=== PATIENT | male | born 1965 | race Caucasian/White ===

== ENCOUNTER 2018-11-15 07:51 | Inpatient (IN) | payer OTHER ==
[~2018-11-15] VITALS: Ht 182.9 cm; Wt 93.4 kg
[~2018-11-15 07:51] MED LIST: AMLO-150 PO; ASPI325T17 PO; CARV-39 PO; CEFD300C37 PO; DOXY50SY PO; ENAL10TA PO; FURO20TA3 PO; POTA20TA14 PO; SPIR25TA PO
[2018-11-15] MEDS ORDERED: ONDANSETRON 2MG/ML, 2ML ONE (08:20)
[2018-11-15] MEDS ORDERED: MORPHINE SULFATE 4 MG/ML, 1ML ONE (08:21)
[2018-11-15] MEDS: MORPHINE SULFATE 4 MG/ML, 1ML IVPush PRN ×2 (08:25→12:31)
[2018-11-15] MEDS ORDERED: SODIUM CHLORIDE 0.9% 1,000ML IVBOLUS ONE ×2 (08:30→11:30)
[2018-11-15] MEDS ORDERED: ONDANSETRON 2MG/ML, 2ML IVPush ONE (08:30)
[2018-11-15] MEDS ORDERED: SODIUM CHLORIDE FLUSH 10ML SYR IVF ONE (08:30)
--- NOTE | 2018-11-15 08:31 | NUR ---
PT STATED THAT HE HAS EPIGASTRIC PAIN THAT GETS WORSE AFTER EATING. PT IS ALERT, ORIENTED, WITH NAD. PT IS CONNECTED TO THE MONITOR. CALL LIGHT WITHIN REACH.
--- NOTE | 2018-11-15 08:43 | NUR ---
US AT BEDSIDE.
[2018-11-15 08:48] LABS: BASOPHILS # (AUTO) 0.04 x10^3/uL (0-0.1); BASOPHILS % (AUTO) 0 % (0-1); EOSINOPHILS # (AUTO) 0.04 x10^3/uL (0-0.4); EOSINOPHILS % (AUTO) 0 % (1-7); LYMPHOCYTES # (AUTO) 0.85 x10^3/uL (1-3.4); LYMPHOCYTES % (AUTO) 8 % (22-44); MD NO; MEAN CORPUSCULAR HEMOGLOBIN 27.9 pg (27.5-34.5); MEAN CORPUSCULAR HGB CONC 33.4 g/dL (33.2-36.2); MEAN CORPUSCULAR VOLUME 83.5 fL (81-97); MEAN PLATELET VOLUME 8.8 fL (7.4-10.4); MONOCYTES # (AUTO) 0.47 x10^3/uL (0.2-0.8); MONOCYTES % (AUTO) 5 % (2-9); NEUTROPHILS % (AUTO) 87 % (42-75); PLATELET COUNT 290 x10^3/uL (130-400); RED BLOOD COUNT 5.96 x10^6/uL (4.38-5.82)
[2018-11-15 09:00] LABS: ALANINE AMINOTRANSFERASE 23 U/L (12-78); ALBUMIN 3.7 g/dL (3.4-5.0); ANION GAP 12 mmol/L (5-15); CALCIUM 9.6 mg/dL (8.5-10.1); CHLORIDE 92 mmol/L (98-107); CREATININE 1.68 mg/dL (0.7-1.3)
[2018-11-15 09:02] LABS: ALKALINE PHOSPHATASE 148 U/L (45-117); BILIRUBIN,TOTAL 0.6 mg/dL (0.2-1.0); TOTAL PROTEIN 8.4 g/dL (6.4-8.2)
--- NOTE | 2018-11-15 09:17 | NUR ---
PT AMBULATED TO THE BATHROOM WITH STEADY GAIT.
--- NOTE | 2018-11-15 09:26 | NUR ---
pt medicated per order. Pt is resting in bed, respirations equal and non labored. NAD. Pt is connected to the monitor. Call light within reach. Sister at bedside.
[2018-11-15 09:52] LABS: FIO2 RA %; PH, VENOUS 7.393 pH (7.320-7.420)
[2018-11-15] MEDS ORDERED: INSULIN REGULAR 100 UNITS/ML, 3ML VIAL ONE (10:16)
[2018-11-15] MEDS ORDERED: CEFOTETAN PMX 1GM/50ML 50 ML ONE (10:16)
[2018-11-15] MEDS ORDERED: hydrALAzine 20 MG/ML, 1ML ONE (10:29)
[2018-11-15] MEDS ORDERED: CEFOTETAN PMX 1GM/50ML 50 ML IV ONE (10:30)
[2018-11-15] MEDS ORDERED: INSULIN REGULAR 100 UNITS/ML, 3ML VIAL IVPush ONE (10:30)
[2018-11-15] MEDS ORDERED: hydrALAzine 20 MG/ML, 1ML IV ONE (10:30)
[2018-11-15 10:37] LABS: ACETONE, SERUM Moderate(40mg/dL) mg/dL (Negative)
--- NOTE | 2018-11-15 10:38 | NUR ---
pt medicated per order.
--- NOTE | 2018-11-15 10:53 | NUR ---
X RAY AT BEDSIDE.
--- NOTE | 2018-11-15 11:04 | NUR ---
HOSPITALIST AT BEDSIDE.
--- NOTE | 2018-11-15 11:14 | NUR ---
REPORT GIVEN TO JOANA LOZADA.
[2018-11-15] MEDS ORDERED: GLUCAGON 1 MG IM PRN (11:30)
[2018-11-15] MEDS ORDERED: INSULIN GLARGINE 100 UNITS/ML, PEN SQ-INSULIN SCH ×2 (11:30→14:00)
[2018-11-15] MEDS ORDERED: DEXTROSE 4 GM TAB.CHEW PO PRN (11:30)
[2018-11-15] MEDS: SODIUM CHLORIDE FLUSH 10ML SYR IVF SCH ×2 (11:30→20:40)
[2018-11-15] MEDS ORDERED: DEXTROSE 50%, 50ML SYRINGE IVPush PRN (11:30)
[2018-11-15 12:20] LABS: HEMOGLOBIN A1C 13.3 % (4.2-6.3)
[2018-11-15 12:25] LABS: TROPONIN I < 0.015 ng/mL (0.000-0.045)
[2018-11-15] MEDS ORDERED: INSULIN LISPRO 100 UNITS/ML, PEN SQ-INSULIN ONE (12:30)
[2018-11-15] MEDS: SODIUM CHLORIDE 0.9% 1,000 ML IV SCH ×2 (12:31→22:35)
[2018-11-15] MEDS: AMLODIPINE 5 MG TABLET PO SCH (12:31)
[2018-11-15] MEDS: METRONIDAZOLE PMX 500MG/100ML 100 ML IV SCH ×2 (13:42→20:40)
[2018-11-15] MEDS: INSULIN GLARGINE 100 UNITS/ML, PEN SQ-INSULIN SCH (13:44)
[2018-11-15 14:00] VITALS: BP 171/109
[2018-11-15 14:30] LABS: TROPONIN I 0.033 ng/mL (0.000-0.045)
[2018-11-15] MEDS: morphine SULFATE 10 MG/ML, 1ML IVPush PRN ×2 (16:02→20:55)
[2018-11-15] MEDS: INSULIN LISPRO 100 UNITS/ML, PEN SQ-INSULIN SCH ×2 (17:45→21:02)
[2018-11-15 17:57] VITALS: BP 180/123
[2018-11-15] MEDS: CEFTRIAXONE PMX 1GM/50ML 50 ML IV SCH (18:23)
[2018-11-15] MEDS: OXYcodone IR 5MG TABLET PO PRN (18:35)
[2018-11-15] MEDS: hydrALAzine 20 MG/ML, 1ML IVPush PRN ×2 (18:41→23:30)
[2018-11-15 19:27] VITALS: BP 164/99
[2018-11-15 20:28] LABS: TROPONIN I 0.022 ng/mL (0.000-0.045)
[2018-11-15 20:47] VITALS: BP 194/115
[2018-11-15 22:33] VITALS: BP 189/123
[2018-11-15] MEDS: LABETALOL 5MG/ML, 20ML IVPush PRN (22:35)
[2018-11-15 23:22] VITALS: BP 187/111
[2018-11-16] VITALS (8 sets, daily range): BP systolic 158–197; BP diastolic 69–116
[2018-11-16] MEDS ORDERED: METOPROLOL TARTRATE 25 MG TABLET ONE (00:58)
[2018-11-16] MEDS: ONDANSETRON 2MG/ML, 2ML IVPush PRN (01:24)
[2018-11-16] MEDS: LABETALOL 5MG/ML, 20ML IVPush PRN (01:34)
[2018-11-16] MEDS: METOPROLOL TARTRATE 25 MG TABLET PO SCH ×3 (01:36→06:32)
[2018-11-16] MEDS: METRONIDAZOLE PMX 500MG/100ML 100 ML IV SCH ×3 (01:42→22:50)
[2018-11-16] MEDS: morphine SULFATE 10 MG/ML, 1ML IVPush PRN ×3 (01:42→17:00)
[2018-11-16] MEDS: hydrALAzine 20 MG/ML, 1ML IVPush PRN ×2 (03:39→18:15)
[2018-11-16 05:42] LABS: CHLORIDE 102 mmol/L (98-107)
[2018-11-16 05:53] LABS: MEAN CORPUSCULAR HEMOGLOBIN 28.3 pg (27.5-34.5); MEAN CORPUSCULAR HGB CONC 33.5 g/dL (33.2-36.2); MEAN CORPUSCULAR VOLUME 84.5 fL (81-97); MEAN PLATELET VOLUME 8.6 fL (7.4-10.4); PLATELET COUNT 356 x10^3/uL (130-400); RED BLOOD COUNT 5.47 x10^6/uL (4.38-5.82); RED CELL DISTRIBUTION WIDTH 14.4 % (9.4-14.8)
[2018-11-16 05:56] LABS: ALANINE AMINOTRANSFERASE 26 U/L (12-78); ALBUMIN 3.2 g/dL (3.4-5.0); ALKALINE PHOSPHATASE 123 U/L (45-117); ANION GAP 13 mmol/L (5-15); BILIRUBIN,TOTAL 0.5 mg/dL (0.2-1.0); CALCIUM 9.4 mg/dL (8.5-10.1); CREATININE 1.38 mg/dL (0.7-1.3); TOTAL PROTEIN 7.4 g/dL (6.4-8.2)
[2018-11-16 06:13] LABS: BASOPHILS # (AUTO) 0.01 x10^3/uL (0-0.1); BASOPHILS % (AUTO) 0 % (0-1); EOSINOPHILS % (AUTO) 0 % (1-7); LYMPHOCYTES % (AUTO) 4 % (22-44); MD SCAN; MONOCYTES # (AUTO) 1.04 x10^3/uL (0.2-0.8); MONOCYTES % (AUTO) 6 % (2-9); NEUTROPHILS % (AUTO) 90 % (42-75)
[2018-11-16] MEDS: INSULIN LISPRO 100 UNITS/ML, PEN SQ-INSULIN SCH ×4 (06:38→20:34)
[2018-11-16] MEDS ORDERED: BUPIVACAINE/PF-EPI 0.5% 1:200K ONE (06:47)
[2018-11-16] MEDS ORDERED: MIDAZOLAM 1 MG/ML, 2ML ONE (07:15)
[2018-11-16] MEDS ORDERED: SCOPOLAMINE PATCH, 1.5MG PATCH.TD72 TD ONE (07:15)
[2018-11-16] MEDS ORDERED: FENTANYL PF 250 MCG/5ML ONE (07:16)
[2018-11-16] MEDS ORDERED: PHENYLEPHRINE 10 MG/ML ONE (07:17)
[2018-11-16] MEDS ORDERED: LABETALOL 20 MG/4 ML ONE (07:17)
[2018-11-16] MEDS ORDERED: METOCLOPRAMIDE 5 MG/ML, 2ML ONE (07:17)
[2018-11-16] MEDS ORDERED: ALBUTEROL/IPRATROPIUM 2.5MG/0.5MG, 3 ML NPPB PRN (07:30)
[2018-11-16] MEDS ORDERED: OXYcodone 5 MG/5 ML ORAL.SOL UDC PO PRN (07:30)
[2018-11-16] MEDS ORDERED: ONDANSETRON 2MG/ML, 2ML IV PRN (07:30)
[2018-11-16] MEDS ORDERED: HYDROmorphone 2 MG/ML, 1ML IVPush PRN (07:30)
[2018-11-16] MEDS ORDERED: PROMETHAZINE 25 MG/ML, 1ML IV PRN (07:30)
[2018-11-16] MEDS ORDERED: METOPROLOL 1 MG/ML, 5ML IV PRN (07:30)
[2018-11-16] MEDS ORDERED: MIDAZOLAM 1 MG/ML, 2ML IV PRN (07:30)
[2018-11-16] MEDS ORDERED: hydrALAzine 20 MG/ML, 1ML IV PRN (07:30)
[2018-11-16] MEDS ORDERED: BUPIVACAINE/PF-EPI 0.5% 1:200K INFIL ONE (07:38)
[2018-11-16] MEDS ORDERED: SUGAMMADEX 200 MG/2 ML IVPush ONE (07:50)
[2018-11-16] MEDS ORDERED: ROCURONIUM 10MG/ML,5ML ONE (08:06)
[2018-11-16] MEDS ORDERED: ONDANSETRON 2MG/ML, 2ML ONE (08:06)
[2018-11-16] MEDS ORDERED: PROPOFOL 10 MG/ML, 20ML ONE (08:06)
[2018-11-16] MEDS ORDERED: DEXAMETHASONE 4 MG/ML, 1ML ONE (08:06)
[2018-11-16] MEDS ORDERED: SUCCINYLCHOLINE 20 MG/ML, 10ML ONE (08:06)
[2018-11-16] MEDS ORDERED: INSULIN SINGLE DOSE, ER SQ-INSULIN ONE (08:27)
[2018-11-16] MEDS ORDERED: INSULIN REGULAR 100 UNITS/ML, 3ML VIAL SQ-INSULIN ONE (08:30)
[2018-11-16] MEDS ORDERED: OXYcodone 5 MG/5 ML ORAL.SOL UDC ONE (08:37)
[2018-11-16] MEDS ORDERED: FENTANYL PF 100 MCG/2ML ONE (08:37)
[2018-11-16] MEDS: FENTANYL PF 100 MCG/2ML IV PRN ×2 (08:39→09:15)
[2018-11-16] MEDS: SODIUM CHLORIDE FLUSH 10ML SYR IVF SCH ×2 (09:00→20:35)
[2018-11-16] MEDS ORDERED: hydrALAzine 20 MG/ML, 1ML ONE (09:20)
[2018-11-16] MEDS: AMLODIPINE 5 MG TABLET PO SCH (10:14)
[2018-11-16] MEDS: SODIUM CHLORIDE 0.9% 1,000 ML IV SCH ×2 (10:14→20:35)
[2018-11-16] MEDS: OXYcodone IR 5MG TABLET PO PRN ×2 (14:45→20:46)
[2018-11-16] MEDS: ACETAMINOPHEN 325 MG TABLET PO PRN (16:49)
[2018-11-16] MEDS ORDERED: KETOROLAC 30 MG/1 ML ONE (17:52)
[2018-11-16] MEDS ORDERED: KETOROLAC 30 MG/1 ML IVPush ONE (18:00)
[2018-11-16] MEDS: CEFTRIAXONE PMX 1GM/50ML 50 ML IV SCH (18:03)
[2018-11-16] MEDS: SIMETHICONE 125 MG CHEW TAB PO SCH (20:34)
[2018-11-17 01:33] VITALS: BP 151/89
[2018-11-17] MEDS: OXYcodone IR 5MG TABLET PO PRN ×3 (02:01→21:30)
[2018-11-17] MEDS: METRONIDAZOLE PMX 500MG/100ML 100 ML IV SCH (04:41)
[2018-11-17] MEDS: SODIUM CHLORIDE 0.9% 1,000 ML IV SCH (04:41)
[2018-11-17] MEDS: METOPROLOL TARTRATE 25 MG TABLET PO SCH (05:17)
[2018-11-17 06:09] LABS: BASOPHILS # (AUTO) 0.03 x10^3/uL (0-0.1); BASOPHILS % (AUTO) 0 % (0-1); EOSINOPHILS # (AUTO) 0.01 x10^3/uL (0-0.4); EOSINOPHILS % (AUTO) 0 % (1-7); LYMPHOCYTES # (AUTO) 1.27 x10^3/uL (1-3.4); LYMPHOCYTES % (AUTO) 11 % (22-44); MD NO; MEAN CORPUSCULAR HEMOGLOBIN 27.7 pg (27.5-34.5); MEAN CORPUSCULAR HGB CONC 32.4 g/dL (33.2-36.2); MEAN CORPUSCULAR VOLUME 85.7 fL (81-97); MEAN PLATELET VOLUME 8.4 fL (7.4-10.4); MONOCYTES # (AUTO) 1.06 x10^3/uL (0.2-0.8); MONOCYTES % (AUTO) 9 % (2-9); NEUTROPHILS # (AUTO) 9.44 x10^3/uL (1.8-6.8); NEUTROPHILS % (AUTO) 80 % (42-75); PLATELET COUNT 252 x10^3/uL (130-400); RED BLOOD COUNT 4.82 x10^6/uL (4.38-5.82); RED CELL DISTRIBUTION WIDTH 14.8 % (9.4-14.8)
[2018-11-17 06:17] LABS: ANION GAP 10 mmol/L (5-15); CALCIUM 8.7 mg/dL (8.5-10.1); CHLORIDE 106 mmol/L (98-107)
[2018-11-17 06:19] LABS: CREATININE 1.39 mg/dL (0.7-1.3)
[2018-11-17 07:16] VITALS: BP 164/86
[2018-11-17] MEDS: SODIUM CHLORIDE FLUSH 10ML SYR IVF SCH ×2 (07:48→21:13)
[2018-11-17] MEDS: AMLODIPINE 5 MG TABLET PO SCH (07:48)
[2018-11-17] MEDS: SIMETHICONE 125 MG CHEW TAB PO SCH ×4 (07:48→21:13)
[2018-11-17] MEDS: metroNIDAZOLE 500 MG TABLET PO SCH ×2 (08:16→16:44)
[2018-11-17] MEDS: POTASSIUM CHLORIDE 20 MEQ TAB.ER.PRT PO SCH ×2 (08:16→16:44)
[2018-11-17] MEDS: INSULIN GLARGINE 100 UNITS/ML, PEN SQ-INSULIN SCH (08:17)
[2018-11-17] MEDS: INSULIN LISPRO 100 UNITS/ML, PEN SQ-INSULIN SCH ×4 (08:17→21:21)
[2018-11-17] MEDS: ACETAMINOPHEN 325 MG TABLET PO PRN (11:19)
[2018-11-17 13:00] VITALS: BP 152/86
[2018-11-17 17:46] VITALS: BP 184/101
[2018-11-17] MEDS: METOPROLOL TARTRATE 50 MG TABLET PO SCH (17:47)
[2018-11-17] MEDS: hydrALAzine 20 MG/ML, 1ML IVPush PRN (17:51)
[2018-11-17 18:44] VITALS: BP 156/90
[2018-11-17] MEDS: CEFDINIR 300 MG CAPSULE PO SCH (21:13)
[2018-11-18] MEDS: metroNIDAZOLE 500 MG TABLET PO SCH ×4 (00:23→23:52)
[2018-11-18 01:21] VITALS: BP 172/101
[2018-11-18] MEDS: hydrALAzine 20 MG/ML, 1ML IVPush PRN (01:48)
[2018-11-18] MEDS: OXYcodone IR 5MG TABLET PO PRN (01:57)
[2018-11-18] MEDS ORDERED: MORPHINE SULFATE 4 MG/ML, 1ML ONE (02:57)
[2018-11-18 03:00] VITALS: BP 154/75
[2018-11-18] MEDS ORDERED: morphine SULFATE 10 MG/ML, 1ML IVPush PRN ×2 (03:00→03:30)
[2018-11-18] MEDS: ONDANSETRON 2MG/ML, 2ML IVPush PRN (04:36)
[2018-11-18] MEDS ORDERED: SIMETHICONE 125 MG CHEW TAB PO ONE ×2 (05:00)
[2018-11-18] MEDS ORDERED: MORPHINE SULFATE 4 MG/ML, 1ML IVPush PRN (05:00)
[2018-11-18 05:40] LABS: BASOPHILS # (AUTO) 0.01 x10^3/uL (0-0.1); BASOPHILS % (AUTO) 0 % (0-1); EOSINOPHILS # (AUTO) 0.01 x10^3/uL (0-0.4); EOSINOPHILS % (AUTO) 0 % (1-7); LYMPHOCYTES # (AUTO) 0.55 x10^3/uL (1-3.4); LYMPHOCYTES % (AUTO) 5 % (22-44); MD NO; MEAN CORPUSCULAR HEMOGLOBIN 28.5 pg (27.5-34.5); MEAN CORPUSCULAR HGB CONC 33.6 g/dL (33.2-36.2); MEAN CORPUSCULAR VOLUME 84.7 fL (81-97); MEAN PLATELET VOLUME 8.5 fL (7.4-10.4); MONOCYTES # (AUTO) 0.72 x10^3/uL (0.2-0.8); MONOCYTES % (AUTO) 6 % (2-9); NEUTROPHILS # (AUTO) 10.48 x10^3/uL (1.8-6.8); NEUTROPHILS % (AUTO) 89 % (42-75); PLATELET COUNT 300 x10^3/uL (130-400); RED BLOOD COUNT 5.37 x10^6/uL (4.38-5.82); RED CELL DISTRIBUTION WIDTH 14.5 % (9.4-14.8)
[2018-11-18 05:50] LABS: ALANINE AMINOTRANSFERASE 67 U/L (12-78); ALBUMIN 3.1 g/dL (3.4-5.0); ANION GAP 11 mmol/L (5-15); CALCIUM 8.7 mg/dL (8.5-10.1); CHLORIDE 103 mmol/L (98-107); CREATININE 1.42 mg/dL (0.7-1.3)
[2018-11-18 05:52] LABS: ALKALINE PHOSPHATASE 122 U/L (45-117); BILIRUBIN,TOTAL 0.8 mg/dL (0.2-1.0); TOTAL PROTEIN 7.2 g/dL (6.4-8.2)
[2018-11-18 06:29] VITALS: BP 190/107
[2018-11-18] MEDS: METOPROLOL TARTRATE 50 MG TABLET PO SCH ×2 (06:34→17:56)
[2018-11-18] MEDS: CEFDINIR 300 MG CAPSULE PO SCH ×2 (07:18→20:06)
[2018-11-18] MEDS: AMLODIPINE 5 MG TABLET PO SCH (07:19)
[2018-11-18] MEDS: SIMETHICONE 125 MG CHEW TAB PO SCH ×4 (07:19→20:06)
[2018-11-18] MEDS: POTASSIUM CHLORIDE 20 MEQ TAB.ER.PRT PO SCH ×2 (07:19→16:17)
[2018-11-18] MEDS: SODIUM CHLORIDE FLUSH 10ML SYR IVF SCH ×2 (07:19→20:07)
[2018-11-18] MEDS: INSULIN LISPRO 100 UNITS/ML, PEN SQ-INSULIN SCH ×4 (07:39→20:07)
[2018-11-18] MEDS: INSULIN GLARGINE 100 UNITS/ML, PEN SQ-INSULIN SCH ×2 (07:40→20:07)
[2018-11-18 10:30] VITALS: BP 133/86
[2018-11-18 14:47] VITALS: BP 158/83
[2018-11-18] MEDS: ACETAMINOPHEN 325 MG TABLET PO PRN ×2 (14:56→19:27)
[2018-11-18 20:00] VITALS: BP 156/86
[2018-11-19] MEDS: ACETAMINOPHEN 325 MG TABLET PO PRN (01:49)
[2018-11-19 02:00] VITALS: BP 166/90
[2018-11-19 05:17] LABS: BASOPHILS # (AUTO) 0.03 x10^3/uL (0-0.1); BASOPHILS % (AUTO) 0 % (0-1); EOSINOPHILS # (AUTO) 0.05 x10^3/uL (0-0.4); EOSINOPHILS % (AUTO) 1 % (1-7); LYMPHOCYTES # (AUTO) 1.41 x10^3/uL (1-3.4); LYMPHOCYTES % (AUTO) 22 % (22-44); MD NO; MEAN CORPUSCULAR HEMOGLOBIN 28.1 pg (27.5-34.5); MEAN CORPUSCULAR HGB CONC 33.1 g/dL (33.2-36.2); MEAN CORPUSCULAR VOLUME 84.9 fL (81-97); MEAN PLATELET VOLUME 8.1 fL (7.4-10.4); MONOCYTES # (AUTO) 0.71 x10^3/uL (0.2-0.8); MONOCYTES % (AUTO) 11 % (2-9); NEUTROPHILS % (AUTO) 66 % (42-75); PLATELET COUNT 239 x10^3/uL (130-400); RED CELL DISTRIBUTION WIDTH 15.1 % (9.4-14.8)
[2018-11-19] MEDS: METOPROLOL TARTRATE 50 MG TABLET PO SCH ×2 (05:22→18:00)
[2018-11-19 05:26] LABS: ANION GAP 7 mmol/L (5-15); CALCIUM 8.7 mg/dL (8.5-10.1); CHLORIDE 109 mmol/L (98-107); CREATININE 1.27 mg/dL (0.7-1.3)
[2018-11-19] MEDS: SIMETHICONE 125 MG CHEW TAB PO SCH ×4 (07:30→20:59)
[2018-11-19] MEDS: POTASSIUM CHLORIDE 20 MEQ TAB.ER.PRT PO SCH ×2 (08:06→16:44)
[2018-11-19] MEDS: metroNIDAZOLE 500 MG TABLET PO SCH ×3 (08:06→23:36)
[2018-11-19] MEDS: INSULIN LISPRO 100 UNITS/ML, PEN SQ-INSULIN SCH ×4 (08:08→21:00)
[2018-11-19 08:24] VITALS: BP 186/109
[2018-11-19] MEDS: CEFDINIR 300 MG CAPSULE PO SCH ×2 (08:45→20:59)
[2018-11-19] MEDS: AMLODIPINE 5 MG TABLET PO SCH (08:46)
[2018-11-19] MEDS: INSULIN GLARGINE 100 UNITS/ML, PEN SQ-INSULIN SCH ×2 (08:47→21:02)
[2018-11-19] MEDS: SODIUM CHLORIDE FLUSH 10ML SYR IVF SCH ×2 (08:49→21:00)
[2018-11-19] MEDS: LISINOPRIL 5 MG TABLET PO SCH ×2 (13:00→14:06)
[2018-11-19 13:26] VITALS: BP 127/86
[2018-11-19 20:00] VITALS: BP 161/97
[2018-11-19] MEDS ORDERED: LORATADINE 10 MG TABLET PO PRN (23:00)
[2018-11-20 02:00] VITALS: BP 168/101
[2018-11-20] MEDS: SIMETHICONE 125 MG CHEW TAB PO SCH ×2 (05:37→10:31)
[2018-11-20] MEDS: METOPROLOL TARTRATE 50 MG TABLET PO SCH (05:37)
[2018-11-20] MEDS ORDERED: FENTANYL PF 250 MCG/5ML ONE (06:47)
[2018-11-20] MEDS ORDERED: PROPOFOL 10 MG/ML, 20ML ONE ×2 (06:49→06:52)
[2018-11-20] MEDS ORDERED: ROCURONIUM 10MG/ML,5ML ONE (06:52)
[2018-11-20 06:54] VITALS: BP 177/101
[2018-11-20] MEDS ORDERED: SUCCINYLCHOLINE 20 MG/ML, 10ML ONE (06:58)
[2018-11-20] MEDS: INSULIN LISPRO 100 UNITS/ML, PEN SQ-INSULIN SCH ×2 (07:00→10:34)
[2018-11-20] MEDS ORDERED: LABETALOL 5MG/ML, 20ML IV PRN (07:30)
[2018-11-20] MEDS ORDERED: PROMETHAZINE 12.5 MG SUPP PR PRN (07:30)
[2018-11-20] MEDS ORDERED: HYDROmorphone 2 MG/ML, 1ML IVPush PRN (07:30)
[2018-11-20] MEDS ORDERED: OXYcodone 5 MG/5 ML ORAL.SOL UDC PO PRN (07:30)
[2018-11-20] MEDS ORDERED: PROMETHAZINE 25 MG/ML, 1ML IM PRN ×2 (07:30)
[2018-11-20] MEDS ORDERED: hydrALAzine 20 MG/ML, 1ML IV PRN (07:30)
[2018-11-20] MEDS ORDERED: PROMETHAZINE 25 MG SUPP PR PRN (07:30)
[2018-11-20] MEDS ORDERED: FENTANYL PF 100 MCG/2ML IV PRN (07:30)
[2018-11-20] MEDS ORDERED: MEPERIDINE/PF 25MG/0.5ML IVPush PRN (07:30)
[2018-11-20] MEDS ORDERED: PROMETHAZINE 25 MG/ML, 1ML IV PRN (07:30)
[2018-11-20] MEDS ORDERED: ONDANSETRON ODT 8 MG PO PRN (07:30)
[2018-11-20] MEDS ORDERED: ONDANSETRON 2MG/ML, 2ML IV PRN (07:30)
[2018-11-20] MEDS ORDERED: OMNIPAQUE 350 MG/ML, 50 ML BOTTLE ONE (08:48)
[2018-11-20] MEDS ORDERED: hydrALAzine 20 MG/ML, 1ML ONE (08:49)
[2018-11-20] MEDS ORDERED: ONDANSETRON 2MG/ML, 2ML ONE (08:50)
[2018-11-20] MEDS ORDERED: MORPHINE SULFATE 4 MG/ML, 1ML ONE (08:50)
[2018-11-20] MEDS: MORPHINE SULFATE 4 MG/ML, 1ML IVPush PRN ×2 (08:55→09:09)
[2018-11-20] MEDS: CEFDINIR 300 MG CAPSULE PO SCH (10:30)
[2018-11-20] MEDS: POTASSIUM CHLORIDE 20 MEQ TAB.ER.PRT PO SCH (10:30)
[2018-11-20] MEDS: AMLODIPINE 5 MG TABLET PO SCH (10:31)
[2018-11-20] MEDS: metroNIDAZOLE 500 MG TABLET PO SCH (10:31)
[2018-11-20] MEDS: LISINOPRIL 5 MG TABLET PO SCH (10:31)
[2018-11-20] MEDS: SODIUM CHLORIDE FLUSH 10ML SYR IVF SCH (10:32)
[2018-11-20] MEDS: INSULIN GLARGINE 100 UNITS/ML, PEN SQ-INSULIN SCH (10:32)
[2018-11-20] MEDS ORDERED: METO50TA82 PO (11:00)
[2018-11-20] MEDS ORDERED: METR500T PO (11:00)
[2018-11-20] MEDS ORDERED: CEFD300C37 PO (11:00)
[2018-11-20] MEDS ORDERED: INSU100I13 SQ-INSULIN (11:02)
[2018-11-20] MEDS ORDERED: METF500T PO (11:02)
[2018-11-20 12:34] VITALS: BP 167/103
[2018-11-20 13:57] VITALS: BP 152/89
== END 2018-11-20 15:20 | disposition home or self-care (01) | DRG 417 ==
LOC: ED 09:25 → EDIP 10:39 → 4EST 11:43 → DCLOUNGE 11-20 14:50
PROVIDERS: ADMIT Hospitalist; ATTEND Family Medicine
PROC: 5A09357 Assistance with Respiratory Ventilation, Less than 24 Consecutive Hours, Continuous Positive Airway Pressure (ICD-10-PCS; 2018-11-16)
PROC: 0FT44ZZ Resection of Gallbladder, Percutaneous Endoscopic Approach (ICD-10-PCS; principal; 2018-11-16 07:15)
PROC: 0F798DZ Dilation of Common Bile Duct with Intraluminal Device, Via Natural or Artificial Opening Endoscopic (ICD-10-PCS; 2018-11-20)
DX: K80.00 Calculus of gallbladder with acute cholecystitis without obstruction (principal); K85.90 Acute pancreatitis without necrosis or infection, unspecified; I50.22 Chronic systolic (congestive) heart failure; I13.0 Hypertensive heart and chronic kidney disease with heart failure and stage 1 through stage 4 chronic kidney disease, or unspecified chronic kidney disease; E87.1 Hypo-osmolality and hyponatremia; K91.89 Other postprocedural complications and disorders of digestive system; R65.10 Systemic inflammatory response syndrome (SIRS) of non-infectious origin without acute organ dysfunction; I42.9 Cardiomyopathy, unspecified; E11.22 Type 2 diabetes mellitus with diabetic chronic kidney disease; N18.3 Chronic kidney disease, stage 3 (moderate); E11.65 Type 2 diabetes mellitus with hyperglycemia; E66.9 Obesity, unspecified; Z68.27 Body mass index [BMI] 27.0-27.9, adult; K59.00 Constipation, unspecified; G47.33 Obstructive sleep apnea (adult) (pediatric); I50.82 Biventricular heart failure; Y83.8 Other surgical procedures as the cause of abnormal reaction of the patient, or of later complication, without mention of misadventure at the time of the procedure; Z82.49 Family history of ischemic heart disease and other diseases of the circulatory system; Z83.3 Family history of diabetes mellitus; Z87.891 Personal history of nicotine dependence
CPT/HCPCS: 36415; 71045; 74176; 74328; 76700; 76770; 80048; 80053; 82010; 82803; 82962; 83036; 83690; 83735; 84484; 85025; 87040; 88304; 93005; 94660; 96361; 96365; 96375; 99291; C8929; G0378; J0696; J1100; J1885; J2250; J2405; J2704; J3010; Q9957; Q9967; C1894; C2625; J0330; J0360; J1815; J2270; J2370; J2765; J3490; J7030

== ENCOUNTER 2018-12-05 12:40 | Inpatient (IN) | payer OTHER ==
[~2018-12-05] VITALS: Ht 182.9 cm; Wt 97.2 kg
[~2018-12-05 12:40] MED LIST changes: +INSU100I13 SQ-INSULIN; +METF500T PO; +METO50TA82 PO; +METR500T PO
--- NOTE | 2018-12-05 13:01 | NUR ---
[id number] CODE NEURO PAGED [phone] STAT PAGE TO NEUROLOGY (JENNIFER MOHAN) FOR DR FLORIAN [phone] BLUE KIMBERLEE RETURNED CALL TO DR FLORIAN
[2018-12-05 13:10] LABS: BASOPHILS # (AUTO) 0.02 x10^3/uL (0-0.1); BASOPHILS % (AUTO) 0 % (0-1); EOSINOPHILS % (AUTO) 2 % (1-7); LYMPHOCYTES # (AUTO) 1.35 x10^3/uL (1-3.4); LYMPHOCYTES % (AUTO) 19 % (22-44); MD NO; MEAN CORPUSCULAR HEMOGLOBIN 27.5 pg (27.5-34.5); MEAN CORPUSCULAR HGB CONC 32.8 g/dL (33.2-36.2); MEAN PLATELET VOLUME 7.6 fL (7.4-10.4); MONOCYTES # (AUTO) 0.59 x10^3/uL (0.2-0.8); MONOCYTES % (AUTO) 8 % (2-9); NEUTROPHILS # (AUTO) 5.11 x10^3/uL (1.8-6.8); NEUTROPHILS % (AUTO) 71 % (42-75); PLATELET COUNT 339 x10^3/uL (130-400); RED BLOOD COUNT 5.54 x10^6/uL (4.38-5.82); RED CELL DISTRIBUTION WIDTH 14.2 % (9.4-14.8)
--- NOTE | 2018-12-05 13:10 | NUR ---
JERONIMO RN (ICU) BS FOR NEURO EXAM. PT A&OX4, RESP EVEN & UNLABORED, SPEECH CLEAR, SKIN WNL. C/O NUMBNESS TO RT UPPER FACE; DENIES PAIN. NO FACIAL DROOP NOTED, SENSATION EQUAL BILAT, STRENGTH EQUAL BILAT. REPORTS CURRENTLY TAKING ANTIBIOTIC FOR SINUSITIS. PT'S DAD AT ROOM. IV INITIATED, MONITORING EQUIPMENT APPLIED.
[2018-12-05 13:21] LABS: INTERNATIONAL NORMALIZED RATIO 1.02 (0.93-1.1); PROTHROMBIN TIME 10.8 Seconds (9.6-11.5)
--- NOTE | 2018-12-05 13:23 | NUR ---
RETURNED FROM CT PER THERESE. PT TOLERATED PROCEDURE WELL. CONTINUES TO C/O RT UPPER FACE NUMBNESS. NO FACIAL DROOP NOTED. SPEECH CLEAR, RESP EVEN & UNLABORED. WHILE IN CT, PT STATES HE TOOK INSULIN 22 UNITS LAST NOC; MORNING GLUCOSE LEVEL WAS 200. TOOK HTN MED TODAY.
[2018-12-05] MEDS ORDERED: ANTIBIOTIC (13:29)
[2018-12-05] MEDS ORDERED: ENAL1TAB5 PO (13:29)
--- NOTE | 2018-12-05 13:41 | NUR ---
CODE NEURO CLEARED BY DR FLORIAN, UMESH DECKER RN.
[2018-12-05] MEDS ORDERED: hydrALAzine 20 MG/ML, 1ML ONE (13:47)
[2018-12-05] MEDS ORDERED: hydrALAzine 20 MG/ML, 1ML IV ONE (14:00)
[2018-12-05] MEDS ORDERED: OMNIPAQUE 350 MG/ML, 100ML BOTTLE ONE (14:25)
[2018-12-05] MEDS ORDERED: SODIUM CHLORIDE FLUSH 10ML SYR IVF PRN (16:30)
[2018-12-05] MEDS ORDERED: ENALAPRIL 10 MG TABLET PO ONE (16:30)
[2018-12-05] MEDS ORDERED: METOPROLOL TARTRATE 50 MG TABLET PO ONE (16:30)
[2018-12-05] MEDS ORDERED: METOPROLOL TARTRATE 50 MG TABLET ONE (16:39)
--- NOTE | 2018-12-05 16:43 | NUR ---
METOPROLOL 50MG GIVEN. PO ENALAPRIL ORDERED FROM PHARMACY. ADMITTING PROVIDER, FERMÍN CAMP, NOTIFIED.
[2018-12-05] MEDS ORDERED: LABETALOL 5MG/ML, 20ML IVPush PRN (17:00)
[2018-12-05] MEDS ORDERED: LABETALOL 5MG/ML, 20ML IV PRN (17:00)
[2018-12-05] MEDS ORDERED: DEXTROSE 4 GM TAB.CHEW PO PRN (17:00)
[2018-12-05] MEDS ORDERED: BISACODYL 10 MG SUPP PR PRN (17:00)
[2018-12-05] MEDS ORDERED: ACETAMINOPHEN 325 MG TABLET PO PRN (17:00)
[2018-12-05] MEDS ORDERED: ONDANSETRON 2MG/ML, 2ML IVPush PRN (17:00)
[2018-12-05] MEDS ORDERED: hydrALAzine 20 MG/ML, 1ML IVPush PRN ×2 (17:00→23:30)
[2018-12-05] MEDS ORDERED: ONDANSETRON ODT 4 MG PO PRN (17:00)
[2018-12-05] MEDS ORDERED: DOCUSATE 100 MG CAPSULE PO PRN (17:00)
[2018-12-05] MEDS ORDERED: DEXTROSE 50%, 50ML SYRINGE IVPush PRN (17:00)
[2018-12-05] MEDS ORDERED: GLUCAGON 1 MG IM PRN (17:00)
[2018-12-05] MEDS ORDERED: POLYETHYLENE GLYCOL 17 GM PACKET PO PRN (17:00)
--- NOTE | 2018-12-05 17:06 | NUR ---
[facility] TELEPHONE HAND-OFF REPORT GIVEN TO KIERRA BELLE. PT READY TO GO TO HOSPITAL ROOM.
[2018-12-05 17:32] LABS: HEMOGLOBIN A1C 13.2 % (4.2-6.3)
[2018-12-05] MEDS ORDERED: GADOBUTROL 10 MMOL/10 ML PFS ONE (17:48)
[2018-12-05 18:57] LABS: HCT (SEDRATE) 46.5 % (39.2-51.8)
[2018-12-05 19:15] VITALS: BP 179/114
[2018-12-05] MEDS: HEPARIN 5,000 UNITS/ML, 1ML SQ SCH (19:30)
[2018-12-05] MEDS: MECLIZINE CHEWABLE 25 MG TAB PO SCH ×2 (19:39→21:00)
[2018-12-05] MEDS: SODIUM CHLORIDE FLUSH 10ML SYR IVF SCH (20:56)
[2018-12-05] MEDS: INSULIN LISPRO 100 UNITS/ML, PEN SQ-INSULIN SCH (20:57)
[2018-12-05] MEDS: INSULIN GLARGINE 100 UNITS/ML, PEN SQ-INSULIN SCH (20:57)
[2018-12-05 21:41] VITALS: BP 144/96
[2018-12-06 01:42] VITALS: BP 139/87
[2018-12-06] MEDS: HEPARIN 5,000 UNITS/ML, 1ML SQ SCH ×3 (04:14→21:28)
[2018-12-06 06:11] LABS: CHLORIDE 104 mmol/L (98-107)
[2018-12-06 06:12] LABS: BASOPHILS # (AUTO) 0.01 x10^3/uL (0-0.1); BASOPHILS % (AUTO) 0 % (0-1); EOSINOPHILS # (AUTO) 0.03 x10^3/uL (0-0.4); EOSINOPHILS % (AUTO) 0 % (1-7); LYMPHOCYTES # (AUTO) 1.53 x10^3/uL (1-3.4); LYMPHOCYTES % (AUTO) 16 % (22-44); MD NO; MEAN CORPUSCULAR HGB CONC 33.5 g/dL (33.2-36.2); MEAN CORPUSCULAR VOLUME 83.5 fL (81-97); MEAN PLATELET VOLUME 7.7 fL (7.4-10.4); MONOCYTES # (AUTO) 0.63 x10^3/uL (0.2-0.8); MONOCYTES % (AUTO) 7 % (2-9); NEUTROPHILS # (AUTO) 7.56 x10^3/uL (1.8-6.8); NEUTROPHILS % (AUTO) 77 % (42-75); PLATELET COUNT 359 x10^3/uL (130-400); RED BLOOD COUNT 5.18 x10^6/uL (4.38-5.82); RED CELL DISTRIBUTION WIDTH 14.9 % (9.4-14.8)
[2018-12-06 06:19] LABS: ALANINE AMINOTRANSFERASE 25 U/L (12-78); ALBUMIN 3.2 g/dL (3.4-5.0); ALKALINE PHOSPHATASE 109 U/L (45-117); ANION GAP 11 mmol/L (5-15); BILIRUBIN,TOTAL 0.3 mg/dL (0.2-1.0); CALCIUM 8.8 mg/dL (8.5-10.1); CHOLESTEROL, TOTAL 271 mg/dL (140-239); CREATININE 2.04 mg/dL (0.7-1.3); HDL CHOL % 13 % (26-37); HDL CHOLESTEROL (DIRECT) 34 mg/dL (40-60); TOTAL PROTEIN 7.2 g/dL (6.4-8.2); TRIGLYCERIDES 448 mg/dL (50-200)
[2018-12-06] MEDS: INSULIN LISPRO 100 UNITS/ML, PEN SQ-INSULIN SCH ×3 (07:00→21:29)
[2018-12-06 07:07] VITALS: BP 145/82
[2018-12-06] MEDS ORDERED: POTASSIUM CHLORIDE 20 MEQ TAB.ER.PRT PO ONE (07:30)
[2018-12-06] MEDS ORDERED: PHARMACY MAY ADJ FOR RENAL FX MC PRN (07:30)
[2018-12-06] MEDS: SODIUM CHLORIDE 0.9% 1,000 ML IV SCH ×2 (07:30→20:34)
[2018-12-06] MEDS: AMPICILLIN/SULBACTAM 3 GM in SODIUM CHLORIDE 0.9% 100 ML IV SCH ×3 (07:30→20:34)
[2018-12-06] MEDS: SODIUM CHLORIDE FLUSH 10ML SYR IVF SCH ×2 (09:00→21:02)
[2018-12-06] MEDS: MECLIZINE CHEWABLE 25 MG TAB PO SCH ×3 (09:00→21:01)
[2018-12-06] MEDS ORDERED: FLUT9.9S NAS (10:09)
[2018-12-06] MEDS ORDERED: SULF1TAB24 PO (10:12)
[2018-12-06] MEDS: FLUTICASONE NASAL SPRAY 16GM NAS SCH (12:00)
[2018-12-06] MEDS ORDERED: POTASSIUM CHLORIDE 20 MEQ TAB.ER.PRT ONE (13:43)
[2018-12-06] MEDS: ASPIRIN 81 MG TABLET CHEW PO/NG SCH (13:57)
[2018-12-06 14:21] VITALS: BP 160/95
--- NOTE | 2018-12-06 14:36 | NUR ---
[facility] [facility] RECOMMEND: NPO with short term means of nutrition and hydration -Aggressive oral care -single ice chips ok orange sheet posted Addendum: 12/06/18 at [address] Amended: Links added.
[2018-12-06 15:26] LABS: AMPHETAMINE SCREEN, URINE Negative (Negative); BARBITURATE SCREEN, URINE Negative (Negative); BENZODIAZEPINE SCREEN, URINE Negative (Negative); CANNABINOID SCREEN, URINE Negative (Negative); COCAINE SCREEN, URINE Negative (Negative); METHADONE SCREEN, URINE Negative (Negative); OPIATE SCREEN, URINE Negative (Negative)
[2018-12-06 18:55] VITALS: BP 163/104
[2018-12-06] MEDS: ATORVASTATIN 40 MG TABLET PO SCH (21:01)
[2018-12-06] MEDS: INSULIN GLARGINE 100 UNITS/ML, PEN SQ-INSULIN SCH (21:30)
[2018-12-07 00:45] VITALS: BP 152/94
[2018-12-07] MEDS: AMPICILLIN/SULBACTAM 3 GM in SODIUM CHLORIDE 0.9% 100 ML IV SCH ×4 (02:05→21:18)
[2018-12-07] MEDS: INSULIN LISPRO 100 UNITS/ML, PEN SQ-INSULIN SCH ×4 (03:00→21:13)
[2018-12-07 05:47] LABS: CHLORIDE 108 mmol/L (98-107)
[2018-12-07 05:53] LABS: ANION GAP 6 mmol/L (5-15); CREATININE 1.76 mg/dL (0.7-1.3)
[2018-12-07] MEDS: SODIUM CHLORIDE 0.9% 1,000 ML IV SCH ×2 (06:25→15:00)
[2018-12-07] MEDS: HEPARIN 5,000 UNITS/ML, 1ML SQ SCH ×3 (06:27→23:00)
[2018-12-07 07:07] VITALS: BP 179/106
[2018-12-07] MEDS: ASPIRIN 81 MG TABLET CHEW PO/NG SCH (08:48)
[2018-12-07] MEDS: MECLIZINE CHEWABLE 25 MG TAB PO SCH ×3 (08:49→21:12)
[2018-12-07] MEDS: SODIUM CHLORIDE FLUSH 10ML SYR IVF SCH ×2 (09:00→21:12)
[2018-12-07] MEDS: FLUTICASONE NASAL SPRAY 16GM NAS SCH (09:00)
[2018-12-07 12:17] VITALS: BP 198/118
[2018-12-07 16:37] VITALS: BP 189/110
[2018-12-07] MEDS ORDERED: AMLODIPINE 10 MG TAB ONE (16:52)
[2018-12-07] MEDS: AMLODIPINE 10 MG TAB PO SCH (17:00)
[2018-12-07 19:19] VITALS: BP 194/110
[2018-12-07 19:45] LABS: MICROSCOPIC AUTO
[2018-12-07 19:46] LABS: CULTURE INDICATED? NO
[2018-12-07] MEDS: ATORVASTATIN 40 MG TABLET PO SCH (21:12)
[2018-12-07] MEDS: INSULIN GLARGINE 100 UNITS/ML, PEN SQ-INSULIN SCH (21:13)
[2018-12-08] VITALS (9 sets, daily range): BP systolic 160–206; BP diastolic 94–123
[2018-12-08] MEDS: AMPICILLIN/SULBACTAM 3 GM in SODIUM CHLORIDE 0.9% 100 ML IV SCH ×4 (03:47→22:27)
[2018-12-08] MEDS: INSULIN LISPRO 100 UNITS/ML, PEN SQ-INSULIN SCH ×4 (03:48→22:27)
[2018-12-08] MEDS: SODIUM CHLORIDE 0.9% 1,000 ML IV SCH (03:48)
[2018-12-08] MEDS: HEPARIN 5,000 UNITS/ML, 1ML SQ SCH ×3 (06:37→23:32)
[2018-12-08] MEDS: AMLODIPINE 10 MG TAB PO SCH (08:59)
[2018-12-08] MEDS: FLUTICASONE NASAL SPRAY 16GM NAS SCH (08:59)
[2018-12-08] MEDS: SODIUM CHLORIDE FLUSH 10ML SYR IVF SCH ×2 (08:59→20:23)
[2018-12-08] MEDS: MECLIZINE CHEWABLE 25 MG TAB PO SCH ×3 (08:59→20:22)
[2018-12-08] MEDS: ASPIRIN 81 MG TABLET CHEW PO/NG SCH (09:00)
[2018-12-08] MEDS: TAMSULOSIN 0.4 MG CAP.ER.24H PO SCH (10:00)
[2018-12-08] MEDS ORDERED: METOPROLOL SUCCINATE 25 MG TAB.ER.24H PO SCH (12:00)
[2018-12-08] MEDS: METOPROLOL TARTRATE 25 MG TABLET PO SCH ×2 (13:00→17:02)
[2018-12-08] MEDS ORDERED: hydrALAzine 20 MG/ML, 1ML IVPush PRN (15:00)
[2018-12-08] MEDS: ATORVASTATIN 40 MG TABLET PO SCH (20:23)
[2018-12-08] MEDS: INSULIN GLARGINE 100 UNITS/ML, PEN SQ-INSULIN SCH (22:27)
[2018-12-09] VITALS (8 sets, daily range): BP systolic 147–185; BP diastolic 84–108
[2018-12-09] MEDS ORDERED: METOPROLOL TARTRATE 25 MG TABLET PO ONE (02:00)
[2018-12-09] MEDS: INSULIN LISPRO 100 UNITS/ML, PEN SQ-INSULIN SCH ×5 (03:16→23:30)
[2018-12-09] MEDS: AMPICILLIN/SULBACTAM 3 GM in SODIUM CHLORIDE 0.9% 100 ML IV SCH ×4 (04:09→22:34)
[2018-12-09] MEDS: HEPARIN 5,000 UNITS/ML, 1ML SQ SCH ×3 (05:47→22:34)
[2018-12-09] MEDS: METOPROLOL TARTRATE 25 MG TABLET PO SCH (05:47)
[2018-12-09] MEDS: TAMSULOSIN 0.4 MG CAP.ER.24H PO SCH (07:40)
[2018-12-09] MEDS: FLUTICASONE NASAL SPRAY 16GM NAS SCH (07:40)
[2018-12-09] MEDS: AMLODIPINE 10 MG TAB PO SCH (07:59)
[2018-12-09] MEDS: MECLIZINE CHEWABLE 25 MG TAB PO SCH ×3 (08:00→19:59)
[2018-12-09] MEDS: ASPIRIN 81 MG TABLET CHEW PO/NG SCH (08:01)
[2018-12-09] MEDS: SODIUM CHLORIDE FLUSH 10ML SYR IVF SCH ×2 (08:01→19:59)
[2018-12-09] MEDS: INSULIN GLARGINE 100 UNITS/ML, PEN SQ-INSULIN SCH (19:59)
[2018-12-09] MEDS: ATORVASTATIN 40 MG TABLET PO SCH (19:59)
[2018-12-09] MEDS: LABETALOL 5MG/ML, 20ML IVPush PRN (22:58)
[2018-12-09] MEDS ORDERED: LISINOPRIL 20 MG TABLET PO SCH (23:30)
[2018-12-10 01:39] VITALS: BP 167/90
[2018-12-10] MEDS: AMPICILLIN/SULBACTAM 3 GM in SODIUM CHLORIDE 0.9% 100 ML IV SCH ×3 (03:51→16:15)
[2018-12-10] MEDS: HEPARIN 5,000 UNITS/ML, 1ML SQ SCH ×2 (05:37→14:38)
[2018-12-10] MEDS: LABETALOL 5MG/ML, 20ML IVPush PRN (07:09)
[2018-12-10 08:23] VITALS: BP 183/111
[2018-12-10] MEDS: ASPIRIN 81 MG TABLET CHEW PO/NG SCH (08:50)
[2018-12-10] MEDS: AMLODIPINE 10 MG TAB PO SCH (08:50)
[2018-12-10] MEDS: MECLIZINE CHEWABLE 25 MG TAB PO SCH ×2 (08:51→16:16)
[2018-12-10] MEDS: SODIUM CHLORIDE FLUSH 10ML SYR IVF SCH (08:51)
[2018-12-10] MEDS: FLUTICASONE NASAL SPRAY 16GM NAS SCH (08:51)
[2018-12-10] MEDS: INSULIN LISPRO 100 UNITS/ML, PEN SQ-INSULIN SCH ×3 (08:52→17:01)
[2018-12-10] MEDS: TAMSULOSIN 0.4 MG CAP.ER.24H PO SCH (08:52)
[2018-12-10] MEDS ORDERED: INSULIN GLARGINE 100 UNITS/ML, PEN SQ-INSULIN SCH ×2 (09:00→21:00)
[2018-12-10 10:04] LABS: ANION GAP 7 mmol/L (5-15); CALCIUM 9.3 mg/dL (8.5-10.1); CHLORIDE 106 mmol/L (98-107); CREATININE 1.25 mg/dL (0.7-1.3)
[2018-12-10 10:38] VITALS: BP 178/114
[2018-12-10 11:50] VITALS: BP 178/101
[2018-12-10] MEDS: LISINOPRIL 20 MG TABLET PO SCH ×2 (11:50→12:03)
[2018-12-10 13:02] VITALS: BP 159/95
[2018-12-10] MEDS ORDERED: LISI-170 PO (14:07)
[2018-12-10] MEDS ORDERED: TRAM50TA2 PO (14:07)
[2018-12-10] MEDS ORDERED: INSU100I11 SQ-INSULIN (14:07)
[2018-12-10] MEDS ORDERED: AMPI3VIA IV (14:07)
[2018-12-10] MEDS ORDERED: INSU100I13 SQ-INSULIN (14:07)
[2018-12-10] MEDS ORDERED: ASPI-515 PO/NG (14:07)
[2018-12-10] MEDS ORDERED: MECL-85 PO (14:07)
[2018-12-10] MEDS ORDERED: AMLO10TA8 PO (14:07)
[2018-12-10] MEDS ORDERED: FLUT16SP NAS (14:07)
[2018-12-10] MEDS ORDERED: ATOR40TA78 PO (14:07)
[2018-12-10] MEDS ORDERED: ONDA4TAB13 PO (14:07)
[2018-12-10] MEDS ORDERED: POLY17PO5 PO (14:07)
[2018-12-10] MEDS ORDERED: DOCU-131 PO (14:07)
[2018-12-10] MEDS ORDERED: HYDR-3343 NG (14:07)
[2018-12-10] MEDS ORDERED: CLON1PAT2 TD (14:07)
[2018-12-10 14:30] VITALS: BP 154/88
== END 2018-12-10 17:00 | disposition short-term general hospital (02) | DRG 64 ==
LOC: ED 16:05 → EDIP 16:08 → 4EST 19:18 → 4WST 12-06 01:03
PROVIDERS: ADMIT Internal Medicine; ATTEND Internal Medicine
DX: I63.9 Cerebral infarction, unspecified (principal); N17.0 Acute kidney failure with tubular necrosis; H70.001 Acute mastoiditis without complications, right ear; I13.0 Hypertensive heart and chronic kidney disease with heart failure and stage 1 through stage 4 chronic kidney disease, or unspecified chronic kidney disease; I16.9 Hypertensive crisis, unspecified; G90.2 Horner's syndrome; E11.22 Type 2 diabetes mellitus with diabetic chronic kidney disease; E11.65 Type 2 diabetes mellitus with hyperglycemia; E66.9 Obesity, unspecified; Z68.29 Body mass index [BMI] 29.0-29.9, adult; E78.5 Hyperlipidemia, unspecified; E87.6 Hypokalemia; G47.33 Obstructive sleep apnea (adult) (pediatric); G51.0 Bell's palsy; H53.2 Diplopia; H90.41 Sensorineural hearing loss, unilateral, right ear, with unrestricted hearing on the contralateral side; H93.19 Tinnitus, unspecified ear; I44.0 Atrioventricular block, first degree; I50.9 Heart failure, unspecified; N18.3 Chronic kidney disease, stage 3 (moderate); R13.10 Dysphagia, unspecified; Z79.82 Long term (current) use of aspirin; Z79.899 Other long term (current) drug therapy; Z83.3 Family history of diabetes mellitus; Z87.891 Personal history of nicotine dependence
CPT/HCPCS: 36415; 70450; 70496; 70498; 70543; 70553; 74018; 74230; 80047; 80048; 80053; 80061; 80307; 81001; 82962; 83036; 84145; 85025; 85610; 85651; 85730; 86140; 87040; 93005; 93308; 99285; A9585; G0378; J0295; J1644; Q9967; J0360; J1815; J7030

== ENCOUNTER 2018-12-31 11:07 | Day surgery (SDC) | payer OTHER ==
[~2018-12-31] VITALS: Ht 182.9 cm; Wt 94.9 kg
[~2018-12-31 11:07] MED LIST changes: +AMLO10TA8 PO; +AMPI3VIA IV; +ANTIBIOTIC; +ASPI-515 PO/NG; +ATOR40TA78 PO; +CLON1PAT2 TD; +DOCU-131 PO; +ENAL1TAB5 PO; +FLUT16SP NAS; +FLUT9.9S NAS; +HYDR-3343 NG; +INSU100I11 SQ-INSULIN; +LISI-170 PO; +MECL-85 PO; +ONDA4TAB13 PO; +POLY17PO5 PO; +SULF1TAB24 PO; +TRAM50TA2 PO
[2018-12-31] MEDS ORDERED: LACTATED RINGERS 1,000 ML IV SCH (11:39)
[2018-12-31] MEDS ORDERED: FENTANYL PF 250 MCG/5ML ONE (11:53)
[2018-12-31 12:00] VITALS: BP 127/80
[2018-12-31] MEDS ORDERED: PLEASE ENTER HEIGHT AND WEIGHT MC SCH (12:00)
[2018-12-31] MEDS ORDERED: CLON0.1T22 PO (12:15)
[2018-12-31] MEDS ORDERED: AMLO10TA8 PO (12:15)
[2018-12-31] MEDS ORDERED: ATOR40TA PO (12:15)
[2018-12-31] MEDS ORDERED: DOCU-180 PO (12:15)
[2018-12-31] MEDS ORDERED: GABA300C10 PO (12:15)
[2018-12-31] MEDS ORDERED: HYDR-3343 PO (12:15)
[2018-12-31] MEDS ORDERED: INSU100I13 SQ (12:15)
[2018-12-31] MEDS ORDERED: ASPI-496 PO (12:15)
[2018-12-31] MEDS ORDERED: CLON1PAT7 TD (12:15)
[2018-12-31] MEDS ORDERED: MECL25TA4 PO (12:15)
[2018-12-31] MEDS ORDERED: TRAM50TA2 PO (12:15)
[2018-12-31] MEDS ORDERED: METF500T17 PO (12:15)
[2018-12-31] MEDS ORDERED: LISI-170 PO (12:29)
[2018-12-31] MEDS ORDERED: SUCCINYLCHOLINE 20 MG/ML, 10ML ONE (12:30)
[2018-12-31] MEDS ORDERED: PROPOFOL 10 MG/ML, 20ML ONE (12:30)
[2018-12-31] MEDS ORDERED: ONDANSETRON 2MG/ML, 2ML ONE (12:30)
[2018-12-31] MEDS ORDERED: ROCURONIUM 10 MG/ML,10ML ONE (12:30)
[2018-12-31] MEDS ORDERED: PROMETHAZINE 25 MG/ML, 1ML IV PRN (13:00)
[2018-12-31] MEDS ORDERED: DIPHENHYDRAMINE 50 MG/ML, 1ML IVPush PRN (13:00)
[2018-12-31] MEDS ORDERED: PROMETHAZINE 25 MG SUPP PR PRN (13:00)
[2018-12-31] MEDS ORDERED: LABETALOL 5MG/ML, 20ML IV PRN (13:00)
[2018-12-31] MEDS ORDERED: PROMETHAZINE 12.5 MG SUPP PR PRN (13:00)
[2018-12-31] MEDS ORDERED: ONDANSETRON ODT 8 MG PO PRN (13:00)
[2018-12-31] MEDS ORDERED: MIDAZOLAM 1 MG/ML, 2ML IV PRN (13:00)
[2018-12-31] MEDS ORDERED: MEPERIDINE/PF 25MG/0.5ML IVPush PRN (13:00)
[2018-12-31] MEDS ORDERED: OXYcodone 5 MG/5 ML ORAL.SOL UDC PO PRN (13:00)
[2018-12-31] MEDS ORDERED: FENTANYL PF 100 MCG/2ML IV PRN (13:00)
[2018-12-31] MEDS ORDERED: MORPHINE SULFATE 4 MG/ML, 1ML IVPush PRN (13:00)
[2018-12-31] MEDS ORDERED: ONDANSETRON 2MG/ML, 2ML IV PRN (13:00)
[2018-12-31] MEDS ORDERED: EPHEDRINE 50 MG/ML, 1ML IVPush PRN (13:00)
[2018-12-31] MEDS ORDERED: OMNIPAQUE 350 MG/ML, 50 ML BOTTLE ONE (13:30)
== END 2018-12-31 16:05 | disposition home or self-care (01) ==
LOC: OUT 11:07
PROVIDERS: ATTEND Internal Medicine
DX: K91.89 Other postprocedural complications and disorders of digestive system (principal); Z79.899 Other long term (current) drug therapy; Z86.73 Personal history of transient ischemic attack (TIA), and cerebral infarction without residual deficits
CPT/HCPCS: 43264; 43275; 74328; 82962; J0330; J2405; J2704; J3010; J7120; Q9967

== ENCOUNTER 2020-12-28 02:17 | Emergency (ER) | payer OTHER ==
[~2020-12-28] VITALS: Ht 182.9 cm; Wt 98.4 kg
[~2020-12-28 02:17] MED LIST changes: +AMLO-211 PO; -AMLO10TA8 PO; +ASPI-496 PO; -ASPI-515 PO/NG; +ASPI-963 PO/NG; +ATOR40TA PO; +CLON0.1T22 PO; +CLON1PAT7 TD; +DOCU-180 PO; -ENAL10TA PO; +ENAL10TA9 PO; -FLUT16SP NAS; +FLUT16SP24 NAS; +GABA300C10 PO; +HYDR-3343 PO; +INSU100I13 SQ; +MECL-101 PO; +METF500T17 PO
[2020-12-28] MEDS ORDERED: FAMO10TA31 PO (02:49)
[2020-12-28] MEDS ORDERED: LORA-59 PO (02:49)
[2020-12-28] MEDS ORDERED: PROMETHAZINE 25 MG/ML, 1ML ONE (02:54)
[2020-12-28] MEDS ORDERED: KETOROLAC 60 MG/2 ML ONE (02:54)
[2020-12-28] MEDS ORDERED: LIDOCAINE-MPF 2% ,5ML ONE (02:54)
[2020-12-28] MEDS ORDERED: PROMETHAZINE 25 MG/ML, 1ML IM ONE (03:00)
[2020-12-28] MEDS ORDERED: LIDOCAINE-MPF 2%, 2ML INFIL ONE (03:00)
[2020-12-28] MEDS ORDERED: KETOROLAC 60 MG/2 ML IM ONE (03:00)
--- NOTE | 2020-12-28 03:00 | NUR ---
PATIENT RESTING IN BED IN NAD. CALL ARMENTA IN REACH. R CHRONIC MIGRAINES/HEAD PAIN THAT HE TREATS AT HOME WITH TRAMADOL BUT DID RUN OUT TODAY. IS NOT REQUESTING ADDITIONAL TRAMADOL HE STATES HIS PHYSICIAN THAT PRESCRIBES HIM THIS WILL REFILL IT TOMORROW. IM MEDS ADMINISTERED. CHARI SIERRA ADMINISTERED LIDO R NARE WITH ATOMIZER. WILL CONTINUE TO MONITOR.
--- NOTE | 2020-12-28 03:54 | NUR ---
DISCHARGE INSTRUCTIONS REVIEWED WITH PATIENT. NO IV PLACED DURING THIS ER VISIT. PATIENT VERBALIZES THAT HE LIVES RIGHT DOWN THE STREET AND FEELS HE IS OK AND SAFE TO DRIVE AFTER GIVEN THE ORDERED MEDS. STEADY GAIT TO LOBBY/ ALL PERSONAL BELONGINGS WITH PATIENT ON DC. CLEAR SPEECH.
[2020-12-28 03:57] VITALS: BP 154/101
== END 2020-12-28 03:50 | disposition home or self-care (01) ==
LOC: ED 02:53
DX: G43.011 Migraine without aura, intractable, with status migrainosus (principal); I44.0 Atrioventricular block, first degree; I21.9 Acute myocardial infarction, unspecified; R94.31 Abnormal electrocardiogram [ECG] [EKG]; R00.0 Tachycardia, unspecified; E11.9 Type 2 diabetes mellitus without complications; I11.0 Hypertensive heart disease with heart failure; I50.9 Heart failure, unspecified; Z87.891 Personal history of nicotine dependence
CPT/HCPCS: 82962; 93005; 96372; 99284; J1885; J2550; J3490

== ENCOUNTER 2021-03-08 15:38 | Inpatient (IN) | payer OTHER ==
[~2021-03-08] VITALS: Ht 182.9 cm; Wt 89.0 kg
[~2021-03-08 15:38] MED LIST changes: -DOCU-180 PO; +DOCU-183 PO; +FAMO10TA31 PO; +LORA-59 PO; +SULF-23 PO; -SULF1TAB24 PO
--- NOTE | 2021-03-08 15:57 | NUR ---
PT AMBULATORY TO ROOM FROM TRIAGE. PT CONNECTED TO MONITORS. PT STATED BOTH NOSTRILS STARTED BLEEDING AROUND 1500. PT STATES HE STOPPED TAKING HIS LISINOPRIL A COUPLE MONTHS AGO BECAUSE IT WAS CAUSING EDEMA IN HIS LEGS. CALL LIGHT WITHIN REACH.
[2021-03-08] MEDS ORDERED: LIDOCAINE 1%-EPI 1:100K, 20ML ONE (16:12)
[2021-03-08] MEDS ORDERED: TRANEXAMIC ACID 100 MG/ML, 10ML ONE (16:13)
[2021-03-08] MEDS ORDERED: TRANEXAMIC ACID 100 MG/ML, 10ML TP ONE (16:30)
[2021-03-08] MEDS ORDERED: LIDOCAINE 1%-EPI 1:100K, 20ML INFIL ONE (16:30)
--- NOTE | 2021-03-08 16:52 | NUR ---
PT SITTING ON CHAIR, ЕЛЕНА. PT STATES HE FEELS A LOT BETTER. CALL LIGHT WITHIN REACH.
[2021-03-08] MEDS ORDERED: LABETALOL 5MG/ML, 20ML IVPush ONE (17:00)
[2021-03-08] MEDS ORDERED: SODIUM CHLORIDE FLUSH 10ML SYR IVF ONE (17:00)
[2021-03-08] MEDS ORDERED: LABETALOL 5MG/ML, 20ML ONE (17:02)
[2021-03-08] MEDS ORDERED: LORazepam 1MG TABLET ONE (17:12)
[2021-03-08] MEDS ORDERED: LORazepam 1MG TABLET PO ONE (17:30)
[2021-03-08 17:56] LABS: BASOPHILS % (AUTO) 1 % (0-1); EOSINOPHILS % (AUTO) 2 % (1-7); LYMPHOCYTES % (AUTO) 11 % (22-44); MEAN CORPUSCULAR HEMOGLOBIN 26.9 pg (27.5-34.5); MEAN CORPUSCULAR HGB CONC 33.4 g/dL (33.2-36.2); MEAN PLATELET VOLUME 7.8 fL (7.4-10.4); MONOCYTES % (AUTO) 7 % (2-9); NEUTROPHILS % (AUTO) 79 % (42-75); PLATELET COUNT 327 x10^3/uL (130-400); RED BLOOD COUNT 5.51 x10^6/uL (4.38-5.82); RED CELL DISTRIBUTION WIDTH 14.8 % (9.4-14.8)
[2021-03-08 17:57] LABS: MD NO
[2021-03-08 18:02] LABS: ALBUMIN 3.4 g/dL (3.4-5.0); ANION GAP 6 mmol/L (5-15); CALCIUM 9.2 mg/dL (8.5-10.1); CHLORIDE 109 mmol/L (98-107); CREATININE 1.78 mg/dL (0.7-1.3)
[2021-03-08] MEDS ORDERED: CEPHALEXIN 500 MG CAPSULE ONE (18:17)
[2021-03-08] MEDS ORDERED: hydrALAzine 20 MG/ML, 1ML ONE ×2 (18:17→19:23)
[2021-03-08] MEDS ORDERED: hydrALAzine 20 MG/ML, 1ML IV ONE ×2 (18:30→19:30)
[2021-03-08] MEDS ORDERED: CEPHALEXIN 500 MG CAPSULE PO ONE (18:30)
--- NOTE | 2021-03-08 18:32 | NUR ---
PT AMBULATORY TO BR WITH UPRIGHT STEADY GAIT. PT BACK TO ROOM. CONNECTED TO MONITORS. CALL LIGHT WITHIN REACH
--- NOTE | 2021-03-08 18:53 | NUR ---
REPORT FROM ALEJANDRINA LOZADA
--- NOTE | 2021-03-08 21:00 | NUR ---
REPORT GIVEN TO CYRIL LOZADA
[2021-03-08 21:30] VITALS: BP 164/91
[2021-03-08] MEDS: hydrALAzine 20 MG/ML, 1ML IVPush PRN (21:58)
[2021-03-08] MEDS: LABETALOL 5MG/ML, 20ML IVPush PRN (21:58)
[2021-03-08] MEDS ORDERED: PROMETHAZINE 25 MG/ML, 1ML IM PRN (22:00)
[2021-03-08] MEDS ORDERED: ONDANSETRON 2MG/ML, 2ML IVPush PRN (22:00)
[2021-03-08] MEDS ORDERED: DOCUSATE 100 MG CAPSULE PO PRN (22:00)
[2021-03-08] MEDS ORDERED: ONDANSETRON ODT 4 MG PO PRN (22:00)
[2021-03-08] MEDS ORDERED: BISACODYL 10 MG SUPP PR PRN (22:00)
[2021-03-08] MEDS ORDERED: ACETAMINOPHEN 325 MG TABLET PO PRN (22:00)
[2021-03-08] MEDS ORDERED: POLYETHYLENE GLYCOL 17 GM PACKET PO PRN (22:00)
[2021-03-08] MEDS ORDERED: OXYcodone IR 5MG TABLET PO PRN (22:00)
[2021-03-08] MEDS ORDERED: AMLODIPINE 5 MG TABLET PO SCH (22:30)
[2021-03-08] MEDS: AMOXICILLIN/CLAV 875-125MG TABLET PO SCH (22:40)
[2021-03-09] VITALS (7 sets, daily range): BP systolic 136–189; BP diastolic 86–109
[2021-03-09] MEDS: hydrALAzine 20 MG/ML, 1ML IVPush PRN ×2 (03:40→23:21)
[2021-03-09] MEDS: LABETALOL 5MG/ML, 20ML IVPush PRN ×2 (03:41→13:34)
[2021-03-09 05:23] LABS: BASOPHILS % (AUTO) 1 % (0-1); EOSINOPHILS % (AUTO) 1 % (1-7); LYMPHOCYTES % (AUTO) 14 % (22-44); MEAN CORPUSCULAR HEMOGLOBIN 26.4 pg (27.5-34.5); MEAN CORPUSCULAR HGB CONC 32.5 g/dL (33.2-36.2); MEAN PLATELET VOLUME 7.6 fL (7.4-10.4); MONOCYTES % (AUTO) 6 % (2-9); NEUTROPHILS % (AUTO) 80 % (42-75); PLATELET COUNT 311 x10^3/uL (130-400); RED BLOOD COUNT 5.12 x10^6/uL (4.38-5.82)
[2021-03-09 05:25] LABS: MD NO
[2021-03-09 05:31] LABS: CHLORIDE 108 mmol/L (98-107)
[2021-03-09 05:42] LABS: ALANINE AMINOTRANSFERASE 42 U/L (12-78); ALBUMIN 3.2 g/dL (3.4-5.0); ALKALINE PHOSPHATASE 129 U/L (45-117); BILIRUBIN,TOTAL 0.3 mg/dL (0.2-1.0); CALCIUM 8.8 mg/dL (8.5-10.1); CHOL/HDL RATIO 4.8; CHOLESTEROL, TOTAL 193 mg/dL (140-239); CREATININE 1.72 mg/dL (0.7-1.3); HDL CHOL % 21 % (26-37); HDL CHOLESTEROL (DIRECT) 40 mg/dL (40-60); LDL CHOLESTEROL,CALCULATED 110 mg/dL (54-169); LDL/HDL RATIO 2.8 (0.5-3.0); TRIGLYCERIDES 213 mg/dL (50-200); VLDL CHOLESTEROL 43 mg/dL (0-25)
[2021-03-09 05:46] LABS: ANION GAP 7 mmol/L (5-15)
[2021-03-09] MEDS ORDERED: POTASSIUM CHLORIDE 20 MEQ TAB.ER.PRT PO ONE (08:00)
[2021-03-09] MEDS ORDERED: ACETAMINOPHEN 325 MG TABLET PO PRN (08:00)
[2021-03-09] MEDS: INSULIN LISPRO 100 UNITS/ML, PEN SQ-INSULIN SCH ×4 (09:17→21:40)
[2021-03-09] MEDS: AMOXICILLIN/CLAV 875-125MG TABLET PO SCH ×2 (09:20→21:37)
[2021-03-09] MEDS: GABAPENTIN 100 MG CAPSULE PO SCH ×3 (09:20→21:37)
[2021-03-09] MEDS: CHLORTHALIDONE 25 MG TABLET PO SCH (09:20)
[2021-03-09] MEDS ORDERED: ARTIFICIAL TEARS 15 DROP/ML BOTTLE EACHEYE PRN (13:30)
[2021-03-10] VITALS (13 sets, daily range): BP systolic 160–218; BP diastolic 84–134
[2021-03-10 05:31] LABS: BASOPHILS % (AUTO) 1 % (0-1); EOSINOPHILS % (AUTO) 2 % (1-7); LYMPHOCYTES % (AUTO) 19 % (22-44); MEAN CORPUSCULAR HEMOGLOBIN 26.6 pg (27.5-34.5); MEAN CORPUSCULAR HGB CONC 32.4 g/dL (33.2-36.2); MEAN PLATELET VOLUME 7.7 fL (7.4-10.4); MONOCYTES % (AUTO) 8 % (2-9); NEUTROPHILS % (AUTO) 70 % (42-75); PLATELET COUNT 282 x10^3/uL (130-400); RED BLOOD COUNT 4.86 x10^6/uL (4.38-5.82); RED CELL DISTRIBUTION WIDTH 15.1 % (9.4-14.8)
[2021-03-10 05:32] LABS: MD NO
[2021-03-10 05:37] LABS: ANION GAP 6 mmol/L (5-15); CALCIUM 8.5 mg/dL (8.5-10.1); CHLORIDE 108 mmol/L (98-107); CREATININE 1.71 mg/dL (0.7-1.3)
[2021-03-10] MEDS: INSULIN LISPRO 100 UNITS/ML, PEN SQ-INSULIN SCH ×4 (07:38→21:01)
[2021-03-10] MEDS: GABAPENTIN 100 MG CAPSULE PO SCH (09:00)
[2021-03-10] MEDS: AMOXICILLIN/CLAV 875-125MG TABLET PO SCH (10:23)
[2021-03-10] MEDS: CHLORTHALIDONE 25 MG TABLET PO SCH (10:24)
[2021-03-10] MEDS: hydrALAzine 20 MG/ML, 1ML IVPush PRN (12:26)
[2021-03-10] MEDS: LABETALOL 5MG/ML, 20ML IVPush PRN ×3 (12:50→22:42)
[2021-03-10] MEDS ORDERED: CHLORTHALIDONE 25 MG TABLET PO ONE (13:00)
[2021-03-10] MEDS: OXYcodone IR 5MG TABLET PO PRN ×2 (14:18→20:58)
[2021-03-10] MEDS ORDERED: cloniDINE 0.1MG PATCH TD SCH (17:00)
[2021-03-11] VITALS (14 sets, daily range): BP systolic 147–201; BP diastolic 87–115
[2021-03-11] MEDS: LABETALOL 5MG/ML, 20ML IVPush PRN ×4 (00:43→22:01)
[2021-03-11] MEDS: OXYcodone IR 5MG TABLET PO PRN ×2 (03:17→09:55)
[2021-03-11 05:29] LABS: BASOPHILS % (AUTO) 0 % (0-1); EOSINOPHILS % (AUTO) 1 % (1-7); LYMPHOCYTES % (AUTO) 16 % (22-44); MEAN CORPUSCULAR HEMOGLOBIN 26.9 pg (27.5-34.5); MEAN CORPUSCULAR HGB CONC 33.1 g/dL (33.2-36.2); MONOCYTES % (AUTO) 10 % (2-9); NEUTROPHILS % (AUTO) 73 % (42-75); PLATELET COUNT 299 x10^3/uL (130-400); RED BLOOD COUNT 5.08 x10^6/uL (4.38-5.82); RED CELL DISTRIBUTION WIDTH 14.8 % (9.4-14.8)
[2021-03-11 05:33] LABS: MD NO
[2021-03-11 05:46] LABS: CHLORIDE 103 mmol/L (98-107)
[2021-03-11 06:03] LABS: ALANINE AMINOTRANSFERASE 42 U/L (12-78); ALBUMIN 3.3 g/dL (3.4-5.0); ALKALINE PHOSPHATASE 135 U/L (45-117); ANION GAP 8 mmol/L (5-15); BILIRUBIN,TOTAL 0.5 mg/dL (0.2-1.0); CALCIUM 8.5 mg/dL (8.5-10.1); CREATININE 1.62 mg/dL (0.7-1.3); TOTAL PROTEIN 7.1 g/dL (6.4-8.2)
[2021-03-11] MEDS: INSULIN LISPRO 100 UNITS/ML, PEN SQ-INSULIN SCH ×4 (07:00→20:18)
[2021-03-11] MEDS ORDERED: POTASSIUM CHLORIDE 40 MEQ in SODIUM CHLORIDE 0.9% 500 ML IV ONE (07:30)
[2021-03-11] MEDS: POTASSIUM CHLORIDE 20 MEQ TAB.ER.PRT PO SCH ×2 (08:10→16:23)
[2021-03-11] MEDS: CHLORTHALIDONE 25 MG TABLET PO SCH (08:10)
[2021-03-11] MEDS ORDERED: CHLO50TA PO (08:41)
[2021-03-11] MEDS ORDERED: OXYC5TAB98 PO (08:41)
[2021-03-11] MEDS ORDERED: HYDR-3343 PO (08:41)
[2021-03-11] MEDS ORDERED: CLON1PAT TD ×2 (08:41)
[2021-03-11] MEDS ORDERED: POTA20TA6 PO (08:41)
[2021-03-11] MEDS: hydrALAzine 20 MG/ML, 1ML IVPush PRN (11:38)
[2021-03-12 02:00] VITALS: BP 182/101
[2021-03-12] MEDS: hydrALAzine 20 MG/ML, 1ML IVPush PRN (02:13)
[2021-03-12 04:22] VITALS: BP 180/102
[2021-03-12] MEDS: LABETALOL 5MG/ML, 20ML IVPush PRN (04:28)
[2021-03-12 05:11] LABS: BASOPHILS % (AUTO) 1 % (0-1); EOSINOPHILS % (AUTO) 1 % (1-7); LYMPHOCYTES % (AUTO) 15 % (22-44); MEAN CORPUSCULAR HEMOGLOBIN 27.2 pg (27.5-34.5); MEAN CORPUSCULAR HGB CONC 33.6 g/dL (33.2-36.2); MEAN PLATELET VOLUME 7.7 fL (7.4-10.4); MONOCYTES % (AUTO) 9 % (2-9); NEUTROPHILS % (AUTO) 74 % (42-75); PLATELET COUNT 297 x10^3/uL (130-400); RED BLOOD COUNT 5.14 x10^6/uL (4.38-5.82); RED CELL DISTRIBUTION WIDTH 15.6 % (9.4-14.8)
[2021-03-12 05:16] LABS: ANION GAP 9 mmol/L (5-15); CALCIUM 8.7 mg/dL (8.5-10.1); CHLORIDE 107 mmol/L (98-107); CREATININE 1.78 mg/dL (0.7-1.3)
[2021-03-12 05:21] LABS: MD NO
[2021-03-12 05:38] VITALS: BP 166/90
[2021-03-12] MEDS: INSULIN LISPRO 100 UNITS/ML, PEN SQ-INSULIN SCH (07:00)
[2021-03-12] MEDS ORDERED: POTASSIUM CHLORIDE 20 MEQ TAB.ER.PRT PO SCH (08:00)
[2021-03-12] MEDS ORDERED: CLON1PAT2 TD (08:25)
[2021-03-12] MEDS ORDERED: LOSA50TA2 PO (08:25)
[2021-03-12 08:27] VITALS: BP 177/108
[2021-03-12] MEDS: CHLORTHALIDONE 25 MG TABLET PO SCH (08:32)
[2021-03-12] MEDS ORDERED: LOSARTAN 50MG TABLET PO SCH (09:00)
== END 2021-03-12 10:28 | disposition home or self-care (01) | DRG 683 ==
LOC: ED 16:31 → EDIP 20:07 → OBSVTOIN 20:07 → INTOOBSV 20:07 → 5SO 21:15 → DCLOUNGE 03-12 10:21
PROVIDERS: ADMIT Internal Medicine; ATTEND Family Medicine
DX: N17.9 Acute kidney failure, unspecified (principal); I13.0 Hypertensive heart and chronic kidney disease with heart failure and stage 1 through stage 4 chronic kidney disease, or unspecified chronic kidney disease; I16.0 Hypertensive urgency; R04.0 Epistaxis; E87.6 Hypokalemia; D72.829 Elevated white blood cell count, unspecified; E11.22 Type 2 diabetes mellitus with diabetic chronic kidney disease; E78.5 Hyperlipidemia, unspecified; F41.9 Anxiety disorder, unspecified; N18.30 Chronic kidney disease, stage 3 unspecified; G47.33 Obstructive sleep apnea (adult) (pediatric); G89.29 Other chronic pain; E66.3 Overweight; I50.9 Heart failure, unspecified; I69.393 Ataxia following cerebral infarction; Z83.3 Family history of diabetes mellitus; Z87.891 Personal history of nicotine dependence; Z91.14 Patient's other noncompliance with medication regimen; Z90.49 Acquired absence of other specified parts of digestive tract; Z91.19 Patient's noncompliance with other medical treatment and regimen; Z68.26 Body mass index [BMI] 26.0-26.9, adult
CPT/HCPCS: 36415; 70450; 80048; 80053; 80061; 82040; 82962; 83036; 83735; 84100; 84443; 85025; 93005; G0378; J3480; J0360; J1815; J7040